=== PATIENT | female | born 1980 | race Caucasian/White ===

== ENCOUNTER → 2016-07-25 | Outpatient (REF) | payer OTHER | LOC: M SFHCWAGY 09:37 | PROVIDERS: ATTEND Family Medicine | DX: R87.619 Unspecified abnormal cytological findings in specimens from cervix uteri (principal) ==

== ENCOUNTER → 2016-09-16 | Outpatient (CLI) | payer OTHER ==
--- NOTE | 2016-09-16 09:28 | REP ---
Chest two views HISTORY: Post laminectomy syndrome Comparison: 05/02/2016 The lungs are clear. The heart is normal in size. The pulmonary vasculature is normal in appearance. The bony structure is intact. IMPRESSION: No acute disease. Signed by Sarbjit Cutler MD 09/16/2016 09:19 A
--- NOTE | 2016-09-16 09:28 | REP ---
LUMBAR SPINE, FIVE VIEWS: HISTORY: Post laminectomy syndrome. The patient is status post L5-S1 posterior spinal fusion and laminectomy. Metal rods and pedicle screws are present. There is no acute fracture. The L3-4 through L5-S1 intervertebral discs are decreased in height consistent with disc degeneration. Osteophytes are present on L3 through L5. There are 7 mm of grade 1 spondylolisthesis of L5 on S1. The facet joints are normal in appearance. IMPRESSION: 1. The patient is status post L5-S1 posterior spinal fusion and laminectomy. 2. Degenerative change as described above. Signed by Sarbjit Cutler MD 09/16/2016 09:37 A
== END ==
LOC: M RAD 08:40
PROVIDERS: ATTEND Nurse Practitioner Family
DX: M96.1 Postlaminectomy syndrome, not elsewhere classified (principal); R06.02 Shortness of breath; Z98.1 Arthrodesis status

== ENCOUNTER → 2016-10-01 | Outpatient (CLI) | payer OTHER ==
[~2016-10-01] MED LIST: DRIS50002 PO; FERR325T3 PO; NYQU1LIQ PO; VITA10002 PO; XANA1TAB2 PO
--- NOTE | 2016-10-01 16:23 | PFTRPT ---
PULMONARY FUNCTION REPORT ORDERING PROVIDER: MAGDALENE Mclean DATE OF SERVICE: 10/01/16 SPIROMETRY: Excellent technical quality. The forced vital capacity is normal. The FEV1 is in proportion. The obstructive index is, therefore, normal. FLOW VOLUME LOOP: The expiratory limb of the flow volume loop is normal. LUNG VOLUMES: The total lung capacity is normal. The residual volume is in proportion. DIFFUSION CAPACITY: The diffusion capacity is minimally reduced, but completely corrects for alveolar volume. HEMOGLOBIN: No hemoglobin is available for correction. AIRWAY MECHANICS: Airways resistance and conductance are normal. IMPRESSION: Minimal decline in the diffusion capacity. Please correlate clinically. MTDD
== END ==
LOC: M CARPUL 15:55
PROVIDERS: ATTEND Nurse Practitioner Family
DX: R06.02 Shortness of breath (principal); F17.290 Nicotine dependence, other tobacco product, uncomplicated

== ENCOUNTER 2016-10-02 08:31 | Emergency (ER) | payer OTHER ==
[~2016-10-02] VITALS: Ht 154.9 cm; Wt 64.9 kg
[2016-10-02] MEDS ORDERED: VITA10002 PO (08:46)
[2016-10-02] MEDS ORDERED: XANA1TAB2 PO (08:46)
[2016-10-02] MEDS ORDERED: DRIS50002 PO (08:46)
[2016-10-02] MEDS ORDERED: NYQU1LIQ PO (08:46)
[2016-10-02] MEDS ORDERED: FERR325T3 PO (08:46)
[2016-10-02] MEDS ORDERED: IBUPROFEN 600 MG TAB PO ONE (09:15)
--- NOTE | 2016-10-02 10:13 | REP ---
RIGHT ANKLE, FOUR VIEWS: HISTORY: Pain. There is no acute fracture or dislocation. The joint space is normal in appearance. IMPRESSION: There is no acute fracture or dislocation. Signed by Sarbjit Cutler MD 10/02/2016 10:25 A
[2016-10-02 10:31] VITALS: BP 106/65
--- NOTE | 2016-10-02 10:35 | REP ---
Right lower extremity deep vein duplex ultrasound: The deep veins demonstrate normal compression, normal Doppler color flow and normal Doppler waveforms with respiration augmentation at multiple levels from the popliteal vein to the common femoral vein. Impression: There is no evidence of deep vein thrombus. Signed by Harsh Murdock MD 10/02/2016 10:27 A
== END 2016-10-02 10:44 | disposition home or self-care (01) ==
LOC: M ED 09:34
DX: M76.61 Achilles tendinitis, right leg (principal); Z79.899 Other long term (current) drug therapy; Z88.5 Allergy status to narcotic agent; F17.210 Nicotine dependence, cigarettes, uncomplicated

== ENCOUNTER → 2016-10-10 | Outpatient (CLI) | payer OTHER ==
--- NOTE | 2016-10-10 09:59 | REP ---
MRI lumbar spine without and with IV contrast: History: Low back pain. The patient status post lumbar fusion. Comparison radiographs September 16, 2016. Comparison MRI study September 18, 2015. Technique: Sagittal and axial T1 and T2-weighted scans are acquired in the usual fashion with and without fat saturation. Sequences include spin echo, turbo spin-echo, and STIR imaging sequences. Post-gadolinium enhanced T1 fat sat axial and sagittal images are included. The gadolinium enhancement dose is 13 ml of intravenous ProHance. MRI findings: The patient is status post transpedicular screw emilee fixation across the L5-S1 level. The patient is status post L5 laminectomy. There is post laminectomy widening of the thecal sac bulging dorsally at L5-S1. There is a 7 mm L5-S1 spondylolisthesis noted. This was reported as 5 mm in September 2014. There is associated neural foraminal narrowing at L5-S1 bilaterally. This is essentially unchanged. At L4-5, there is no evidence of disc herniation. At L3-4, there is degenerative narrowing of the disc and mild diffuse disc bulging. No central canal stenosis or neural foraminal narrowing is seen. At L1-2, there is mild degenerative disc change. No disc protrusion is seen. No central canal stenosis is seen. Post gadolinium enhanced MR imaging shows no significant or abnormal gadolinium enhancement. Impression: Interval L5 laminectomy and bilateral L5-S1 transpedicular screw posterior element fusion for 7 mm L5-S1 spondylolisthesis associated with bilateral L5 spondylolysis. There is bilateral neural foraminal narrowing again noted at L5-S1. No other significant finding. Signed by Armando Felipe MD 10/10/2016 11:22 A
== END ==
LOC: M RAD 08:18
PROVIDERS: ATTEND Neurological Surgery
DX: M54.5 Low back pain (principal); Z98.1 Arthrodesis status
CPT/HCPCS: 72158; A9576

== ENCOUNTER → 2016-10-30 | Day surgery (SDC) | payer OTHER ==
[~2016-10-30] VITALS: Ht 154.9 cm; Wt 64.9 kg
[~2016-10-30] MED LIST changes: +ACETAMINOPH W/CODEINE #3 TAB UD PO PRN; +CITA40TA4 PO; +GLYCOPYRROLATE INJ 0.2 MG/ML 2 ML VIAL As Ordered ONE; +LIDOCAINE 2% INJ 100 MG/5 ML SDV (FOR ANES.) As Ordered ONE; +LR 1,000 ML IV ONE; +LR 1,000 ML IV SCH; +METOCLOPRAMIDE INJ 10MG/2ML VIAL (J2765) IV PRN; +MIDAZOLAM INJ 2 MG/2 ML VIAL (J2250) As Ordered ONE; +NEOSTIGMINE 1MG/ML 5 ML SYRINGE (J2710) As Ordered ONE; +OMEP40CA2 PO; +ONDANSETRON 4MG/2ML VIAL (J2405) As Ordered ONE; +ONDANSETRON 4MG/2ML VIAL (J2405) IV PRN; +PROPOFOL 200 MG/20 ML VIAL As Ordered ONE; +ROCURONIUM BROMIDE 50 MG/5 ML VIAL As Ordered ONE; +TRIAMCINOLONE ACETONIDE SUSP 40 MG/ML VIAL (J3301) As Ordered ONE; +dexameTHASONE 4 MG/ML 1ML VIAL (J1100) As Ordered ONE; +fentaNYL 100 MCG/2 ML INJECTION (J3010) As Ordered ONE
[2016-10-30] MEDS: PERCOCET 5MG/325MG TAB PO PRN ×2 (15:15→15:45)
[2016-10-30] MEDS: MEPERIDINE INJ 25 MG/ML VIAL (J2175) IV PRN ×2 (15:15→15:20)
[2016-10-30] MEDS: fentaNYL 100 MCG/2 ML INJECTION (J3010) IV PRN ×4 (15:45→16:00)
[2016-10-30 17:40] VITALS: BP 120/58
--- NOTE | 2016-10-30 22:05 | RO ---
DATE OF PROCEDURE: 10/30/2016 PREPROCEDURE DIAGNOSIS: Recurrent left submandibular sialadenitis. POSTPROCEDURE DIAGNOSIS: Recurrent left submandibular sialadenitis. PROCEDURE: Exploration of the left submandibular duct. SURGEON: Dr. Saad Davies CANE PILER: Librado Yoder ANESTHESIA: FINDINGS: The duct was sclerotic, and I could not enter it. DESCRIPTION OF PROCEDURE: Under general anesthesia with the patient intubated nasally, the patient was draped in the usual manner. I tried to probe the submandibular duct but could not find an opening. Because of that, I made an incision over the duct. I dissected down to it and around it and could not find an opening into the duct. After dissection into the floor of the mouth and following the duct, I decided to terminate the procedure. The patient will be brought back at a later date if she wishes for submandibular gland resection. Edited 10/30/2016 ina
== END | disposition home or self-care (01) ==
LOC: M SDC 11:06
PROVIDERS: ATTEND Otolaryngology
DX: K11.20 Sialoadenitis, unspecified (principal); K21.9 Gastro-esophageal reflux disease without esophagitis; D64.9 Anemia, unspecified; F41.8 Other specified anxiety disorders; Z79.899 Other long term (current) drug therapy; F17.210 Nicotine dependence, cigarettes, uncomplicated
CPT/HCPCS: 42320; J1100; J2175; J2250; J2405; J2710; J3010; J3301

== ENCOUNTER 2016-12-08 11:56 | Emergency (ER) | payer OTHER ==
[~2016-12-08] VITALS: Ht 154.9 cm; Wt 64.5 kg
[~2016-12-08 11:56] MED LIST changes: -ACETAMINOPH W/CODEINE #3 TAB UD PO PRN; -GLYCOPYRROLATE INJ 0.2 MG/ML 2 ML VIAL As Ordered ONE; -LIDOCAINE 2% INJ 100 MG/5 ML SDV (FOR ANES.) As Ordered ONE; -LR 1,000 ML IV ONE; -LR 1,000 ML IV SCH; -METOCLOPRAMIDE INJ 10MG/2ML VIAL (J2765) IV PRN; -MIDAZOLAM INJ 2 MG/2 ML VIAL (J2250) As Ordered ONE; -NEOSTIGMINE 1MG/ML 5 ML SYRINGE (J2710) As Ordered ONE; -ONDANSETRON 4MG/2ML VIAL (J2405) As Ordered ONE; -ONDANSETRON 4MG/2ML VIAL (J2405) IV PRN; -PROPOFOL 200 MG/20 ML VIAL As Ordered ONE; -ROCURONIUM BROMIDE 50 MG/5 ML VIAL As Ordered ONE; -TRIAMCINOLONE ACETONIDE SUSP 40 MG/ML VIAL (J3301) As Ordered ONE; -dexameTHASONE 4 MG/ML 1ML VIAL (J1100) As Ordered ONE; -fentaNYL 100 MCG/2 ML INJECTION (J3010) As Ordered ONE
[2016-12-08] MEDS ORDERED: PRED10TA (12:09)
[2016-12-08] MEDS ORDERED: ALBU17IN (12:09)
[2016-12-08] MEDS ORDERED: VITA100L PO (12:09)
[2016-12-08] MEDS ORDERED: VALI5TAB PO (13:41)
[2016-12-08] MEDS ORDERED: PRED20TA PO (13:41)
[2016-12-08 13:50] VITALS: BP 100/60
== END 2016-12-08 14:21 | disposition home or self-care (01) ==
LOC: M ED 13:03
DX: M54.41 Lumbago with sciatica, right side (principal); M54.42 Lumbago with sciatica, left side; F17.200 Nicotine dependence, unspecified, uncomplicated; Z98.1 Arthrodesis status; Z90.79 Acquired absence of other genital organ(s); Z88.5 Allergy status to narcotic agent; Z79.899 Other long term (current) drug therapy

== ENCOUNTER 2017-01-14 13:13 | Emergency (ER) | payer OTHER ==
[~2017-01-14] VITALS: Ht 154.9 cm; Wt 70.0 kg
[~2017-01-14 13:13] MED LIST changes: +ALBU17IN; +PRED10TA2; +PRED20TA PO; +VALI5TAB PO; +VITA100L PO
[2017-01-14] MEDS ORDERED: GABA-282 PO (13:26)
[2017-01-14] MEDS ORDERED: MONT10TA2 (13:26)
[2017-01-14 14:53] LABS: BASO # 0.1 K/mm3 (0.0-0.2); BASO % 0.5 % (0.0-1.0); EOS # 0.1 K/mm3 (0.0-0.50); EOS % 0.5 % (0.0-3.0); LARGE UNSTAINED CELL # 0.1 K/mm3 (0.0-0.4); LYMPH # 1.8 K/mm3 (1.5-4.5); LYMPH % 14.9 % (24.0-44.0); MEAN CORPUSCULAR HEMOGLOBIN 32.4 pg (27.0-33.0); MEAN CORPUSCULAR HGB CONC 34.4 g/dl (32.0-36.5); MEAN CORPUSCULAR VOLUME 94.1 fl (80.0-96.0); MONO # 0.4 K/mm3 (0.0-0.8); MONO % 2.9 % (0.0-5.0); NEUTROPHILS # 9.7 K/mm3 (1.8-7.7); NEUTROPHILS % 80.2 % (36.0-66.0); PLATELET COUNT, AUTOMATED 105 k/mm3 (150-450); RED CELL DISTRIBUTION WIDTH 12.5 % (11.5-14.5); WHITE BLOOD COUNT 12.1 K/mm3 (4.0-10.0)
[2017-01-14 14:58] LABS: ADD MORPHOLOGY? YES
[2017-01-14 15:02] LABS: ANION GAP 7 MEQ/L (8-16); BLOOD UREA NITROGEN 8 MG/DL (7-18); CALCIUM LEVEL 8.9 MG/DL (8.5-10.1); CARBON DIOXIDE LEVEL 25 MEQ/L (21-32); CHLORIDE LEVEL 108 MEQ/L (98-107); CREATININE FOR GFR 0.64 MG/DL (0.55-1.02); GLOMERULAR FILTRATION RATE > 60.0 (>60); GLUCOSE, FASTING 93 MG/DL (70-105); POTASSIUM SERUM 3.8 MEQ/L (3.5-5.1); SODIUM LEVEL 140 MEQ/L (136-145); VITAMIN B12 LEVEL 303 PG/ML (247-911)
[2017-01-14 15:24] LABS: GIANT PLATELETS 1+
[2017-01-14 16:20] VITALS: BP 129/68
--- NOTE | 2017-01-14 19:45 | ECGEPIP ---
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
[2017-02-09] MEDS ORDERED: FLON1SPR (08:53)
== END 2017-01-14 16:42 | disposition home or self-care (01) ==
LOC: M ED 13:13
DX: R20.0 Anesthesia of skin (principal); R53.83 Other fatigue; F41.9 Anxiety disorder, unspecified; F17.210 Nicotine dependence, cigarettes, uncomplicated; Z88.5 Allergy status to narcotic agent; Z79.899 Other long term (current) drug therapy

== ENCOUNTER → 2017-02-02 | Outpatient (CLI) | payer OTHER ==
[~2017-02-02] MED LIST changes: +FLON1SPR; +GABA-282 PO; +MONT10TA2
[2017-02-02 07:55] LABS: BASO # 0.1 K/mm3 (0.0-0.2); BASO % 0.8 % (0.0-1.0); EOS # 0.2 K/mm3 (0.0-0.50); LARGE UNSTAINED CELL # 0.1 K/mm3 (0.0-0.4); LARGE UNSTAINED CELL % 1.4 % (0.0-4.0); LYMPH # 2.2 K/mm3 (1.5-4.5); MEAN CORPUSCULAR HEMOGLOBIN 32.1 pg (27.0-33.0); MEAN CORPUSCULAR HGB CONC 34.4 g/dl (32.0-36.5); MEAN CORPUSCULAR VOLUME 93.3 fl (80.0-96.0); MONO # 0.4 K/mm3 (0.0-0.8); MONO % 3.9 % (0.0-5.0); NEUTROPHILS # 6.4 K/mm3 (1.8-7.7); NEUTROPHILS % 68.8 % (36.0-66.0); PLATELET COUNT, AUTOMATED 112 k/mm3 (150-450); RED CELL DISTRIBUTION WIDTH 12.7 % (11.5-14.5); WHITE BLOOD COUNT 9.3 K/mm3 (4.0-10.0)
[2017-02-02 10:13] LABS: ADD MORPHOLOGY? YES
[2017-02-02 10:14] LABS: ANISOCYTOSIS 1+
== END ==
LOC: M LAB 07:21
PROVIDERS: ATTEND Internal Medicine Gastroenterology
DX: R19.7 Diarrhea, unspecified (principal); D69.49 Other primary thrombocytopenia

== ENCOUNTER 2017-03-09 10:40 | Outpatient (CLI) | payer OTHER ==
[~2017-03-09] VITALS: Ht 154.9 cm; Wt 64.9 kg
[2017-03-09] MEDS ORDERED: NS 1,000 ML IV ONE (11:00)
[2017-03-09] MEDS ORDERED: LIDOCAINE 2% INJ 100 MG/5 ML SDV (FOR ANES.) As Ordered ONE (11:59)
[2017-03-09] MEDS ORDERED: PROPOFOL 200 MG/20 ML VIAL As Ordered ONE (11:59)
--- NOTE | 2017-03-09 12:11 | ROOR ---
Patient Name: Julia Campos Procedure Date: 03/09/2017 11:56 AM Date of : 1980 Age: 36 Room: [facility] Gender: Female Note Status: Finalized Procedure: Upper GI endoscopy + Small bowel bx. Indications: Heartburn, Diarrhea, Endoscopy to assess diarrhea in patient suspected of having celiac disease Providers: Jayy Mead MD Referring MD: Eula JACKSON NP Requesting Provider: Medicines: Monitored Anesthesia Care Complications: No immediate complications. Procedure: Pre-Anesthesia Assessment: - The heart rate, respiratory rate, oxygen saturations, blood pressure, adequacy of pulmonary ventilation, and response to care were monitored throughout the procedure. The Endoscope was introduced through the mouth, and advanced to the second part of duodenum. The upper GI endoscopy was accomplished without difficulty. The patient tolerated the procedure well. Findings: The Z-line was regular and was found 37 cm from the incisors. A small hiatal hernia was present. No other significant abnormalities were identified in a careful examination of the stomach. The exam of the duodenum was otherwise normal. Biopsies for histology were taken with a cold forceps in the first portion of the duodenum for evaluation of celiac disease. The exam was otherwise without abnormality. Impression: - Z-line regular, 37 cm from the incisors. - Small hiatal hernia. - The examination was otherwise normal. - Biopsies were taken with a cold forceps for evaluation of celiac disease. Recommendation: - Patient has a contact number available for emergencies. The signs and symptoms of potential delayed complications were discussed with the patient. Return to normal activities tomorrow. Written discharge instructions were provided to the patient. - Discharge patient to home. - Follow an antireflux regimen. - Continue present medications. - Await pathology results. - Telephone GI clinic for pathology results in 1 week. - Return to referring physician. - The findings and recommendations were discussed with the patient's family. Jayy Mead MD Jayy Mead MD 03/09/2017 12:11:44 PM This report has been signed electronically. Number of Addenda: 0 Note Initiated On: 03/09/2017 11:56 AM Estimated Blood Loss: Estimated blood loss: none.
--- NOTE | 2017-03-09 12:29 | ROOR ---
Patient Name: Julia Campos Procedure Date: 03/09/2017 11:57 AM Date of : 1980 Age: 36 Room: [facility] Gender: Female Note Status: Finalized Procedure: Total Colonoscopy to Cecum + Cold Snare Polypectomy + Hemoclips Indications: Clinically significant diarrhea of unexplained origin Providers: Jayy Mead MD Referring MD: Eula JACKSON NP Requesting Provider: Medicines: Monitored Anesthesia Care Complications: No immediate complications. Procedure: Pre-Anesthesia Assessment: - The heart rate, respiratory rate, oxygen saturations, blood pressure, adequacy of pulmonary ventilation, and response to care were monitored throughout the procedure. The Colonoscope was introduced through the anus and advanced to the cecum, identified by appendiceal orifice and ileocecal valve. The colonoscopy was performed without difficulty. The patient tolerated the procedure well. The quality of the bowel preparation was good. Findings: The perianal and digital rectal examinations were normal. Non-bleeding internal hemorrhoids were found during retroflexion. The hemorrhoids were small and Grade I (internal hemorrhoids that do not prolapse). A small polyp was found at 10 cm proximal to the anus. The polyp was sessile. The polyp was removed with a cold snare. Resection and retrieval were complete. To prevent bleeding after the polypectomy, one hemostatic clip was successfully placed (MR conditional). There was no bleeding at the end of the procedure. Scattered small-mouthed diverticula were found in the recto-sigmoid colon, sigmoid colon and descending colon. Biopsies for histology were taken with a cold forceps from the ascending colon, transverse colon and descending colon for evaluation of microscopic colitis. The exam was otherwise without abnormality on direct and retroflexion views. Impression: - Non-bleeding internal hemorrhoids. - One small polyp at 10 cm proximal to the anus, removed with a cold snare. Resected and retrieved. Clip (MR conditional) was placed. - Diverticulosis in the recto-sigmoid colon, in the sigmoid colon and in the descending colon. - The examination was otherwise normal on direct and retroflexion views. - Biopsies were taken with a cold forceps from the ascending colon, transverse colon and descending colon for evaluation of microscopic colitis. - The exam was otherwise normal to the cecum. Recommendation: - Patient has a contact number available for emergencies. The signs and symptoms of potential delayed complications were discussed with the patient. Return to normal activities tomorrow. Written discharge instructions were provided to the patient. - High fiber diet. - Discharge patient to home. - Continue present medications. - Await pathology results. - Telephone GI clinic for pathology results in 1 week. - Repeat colonoscopy at age 48 for surveillance based on pathology results. - Return to referring physician. - The findings and recommendations were discussed with the patient's family. Jayy Mead MD Jayy Mead MD 03/09/2017 12:29:16 PM This report has been signed electronically. Number of Addenda: 0 Note Initiated On: 03/09/2017 11:57 AM Estimated Blood Loss: Estimated blood loss: none.
[2017-03-09 12:55] VITALS: BP 115/77
== END 2017-03-09 13:15 | disposition home or self-care (01) ==
LOC: M OPP 10:40
PROVIDERS: ATTEND Internal Medicine Gastroenterology
DX: R19.7 Diarrhea, unspecified (principal); D12.8 Benign neoplasm of rectum; K64.0 First degree hemorrhoids; K57.30 Diverticulosis of large intestine without perforation or abscess without bleeding; R12 Heartburn; K44.9 Diaphragmatic hernia without obstruction or gangrene; R00.2 Palpitations; D64.9 Anemia, unspecified; D69.49 Other primary thrombocytopenia; M19.90 Unspecified osteoarthritis, unspecified site; F41.9 Anxiety disorder, unspecified; F32.9 Major depressive disorder, single episode, unspecified; G43.909 Migraine, unspecified, not intractable, without status migrainosus; J45.909 Unspecified asthma, uncomplicated; G47.8 Other sleep disorders; F40.240 Claustrophobia; Z98.1 Arthrodesis status; F17.210 Nicotine dependence, cigarettes, uncomplicated; Z88.8 Allergy status to other drugs, medicaments and biological substances; Z79.899 Other long term (current) drug therapy; Z80.3 Family history of malignant neoplasm of breast; Z80.41 Family history of malignant neoplasm of ovary; Z80.0 Family history of malignant neoplasm of digestive organs

== ENCOUNTER → 2017-04-09 | Outpatient (CLI) | payer OTHER ==
--- NOTE | 2017-04-09 14:56 | REP ---
LEFT HUMERUS, TWO VIEWS: HISTORY: Pain. There is no acute fracture or dislocation. The joint spaces are normal in appearance. IMPRESSION: There is no acute fracture or dislocation. Signed by Sarbjit Cutler MD 04/09/2017 02:57 P
--- NOTE | 2017-04-09 15:00 | REP ---
RIGHT HAND, FOUR VIEWS: HISTORY: Pain. There is no acute fracture or dislocation. The joint spaces are normal in appearance. IMPRESSION: There is no acute fracture or dislocation. Signed by Sarbjit Cutler MD 04/09/2017 03:04 P
== END ==
LOC: M WUC 12:21
PROVIDERS: ATTEND Physician Assistant
DX: M79.602 Pain in left arm (principal); M79.641 Pain in right hand

== ENCOUNTER → 2017-06-16 | Outpatient (REF) | payer OTHER ==
[~2017-06-16] MED LIST changes: +GABA600T; +GENT3OPD OU
== END ==
LOC: M SFHCLERA 18:59
PROVIDERS: ATTEND Nurse Practitioner Family
DX: R10.2 Pelvic and perineal pain (principal)

== ENCOUNTER 2017-06-23 12:00 | Emergency (ER) | payer OTHER | END 2017-06-23 14:32 | disposition home or self-care (01) | LOC: M ED 12:00 | DX: H10.9 Unspecified conjunctivitis (principal); H00.013 Hordeolum externum right eye, unspecified eyelid; H00.016 Hordeolum externum left eye, unspecified eyelid; K21.9 Gastro-esophageal reflux disease without esophagitis; G89.29 Other chronic pain; D69.3 Immune thrombocytopenic purpura; Z79.899 Other long term (current) drug therapy; Z88.5 Allergy status to narcotic agent; F17.210 Nicotine dependence, cigarettes, uncomplicated | CPT/HCPCS: 99283 ==

== ENCOUNTER → 2017-07-31 | Outpatient (REF) | payer OTHER | LOC: M SFHCLERA 12:06 | DX: M54.5 Low back pain (principal); J06.9 Acute upper respiratory infection, unspecified ==

== ENCOUNTER → 2017-08-24 | Outpatient (CLI) | payer OTHER | LOC: M RAD 10:33 | DX: M79.1 Myalgia (principal) | CPT/HCPCS: 76882 ==

== ENCOUNTER 2017-09-05 10:51 | Emergency (ER) | payer OTHER ==
[2017-09-05] MEDS: NORCO, ANEXSIA 5/325MG TABLET (HYDROcodone/ACETAMINOPHEN) PO (11:37)
[2017-09-05] MEDS: METHOCARBAMOL 500 MG TAB PO (11:37)
== END 2017-09-05 12:28 | disposition home or self-care (01) ==
LOC: M ED 10:51
DX: M54.12 Radiculopathy, cervical region (principal); J45.909 Unspecified asthma, uncomplicated; K21.9 Gastro-esophageal reflux disease without esophagitis; G43.909 Migraine, unspecified, not intractable, without status migrainosus; F41.9 Anxiety disorder, unspecified; D69.3 Immune thrombocytopenic purpura; F17.210 Nicotine dependence, cigarettes, uncomplicated; Z88.5 Allergy status to narcotic agent; Z79.899 Other long term (current) drug therapy
CPT/HCPCS: 72125

== ENCOUNTER → 2017-09-07 | Outpatient (CLI) | payer OTHER | LOC: M LRY 18:23 | DX: M79.675 Pain in left toe(s) (principal) | CPT/HCPCS: 73630 ==

== ENCOUNTER → 2017-09-18 | Outpatient (CLI) | payer OTHER | LOC: M LAB 18:32 | DX: Z01.818 Encounter for other preprocedural examination (principal) | CPT/HCPCS: 93005 ==

== ENCOUNTER 2017-09-24 10:54 | Emergency (ER) | payer OTHER ==
[2017-09-24 10:04] LABS: BASO % 0.2 % (0.0-1.0); EOS # 0.1 10^3/uL (0.0-0.50); EOS % 0.6 % (0.0-3.0); HEMATOCRIT 42.7 % (36.0-47.0); HEMOGLOBIN 14.6 g/dl (12.0-16.0); IMMATURE GRANULOCYTE % 0.3 % (0-3.0); LYMPH # 2.5 10^3/uL (1.5-4.5); LYMPH % 18.1 % (24.0-44.0); MEAN CORPUSCULAR HEMOGLOBIN 31.3 pg (27.0-33.0); MEAN CORPUSCULAR HGB CONC 34.2 g/dl (32.0-36.5); MEAN CORPUSCULAR VOLUME 91.6 fl (80.0-96.0); MONO # 0.7 10^3/uL (0.0-0.8); MONO % 5.5 % (0.0-5.0); NEUTROPHILS # 10.2 10^3/uL (1.8-7.7); NEUTROPHILS % 75.3 % (36.0-66.0); PLATELET COUNT, AUTOMATED 132 10^3/uL (150-450); RED BLOOD COUNT 4.66 10^6/uL (4.00-5.40); RED CELL DISTRIBUTION WIDTH 13.2 % (11.5-14.5); WHITE BLOOD COUNT 13.5 10^3/uL (4.0-10.0)
[2017-09-24 10:21] LABS: ANION GAP 4 MEQ/L (8-16); BLOOD UREA NITROGEN 11 MG/DL (7-18); CALCIUM LEVEL 8.6 MG/DL (8.5-10.1); CARBON DIOXIDE LEVEL 30 MEQ/L (21-32); CHLORIDE LEVEL 108 MEQ/L (98-107); CPK CREATINE PHOSPHOKINASE 47 U/L (26-192); CREATININE FOR GFR 0.68 MG/DL (0.55-1.30); GLOMERULAR FILTRATION RATE > 60.0 (>60); GLUCOSE, FASTING 107 MG/DL (70-100); POTASSIUM SERUM 3.1 MEQ/L (3.5-5.1); SODIUM LEVEL 142 MEQ/L (136-145); TROPONIN I < 0.02 NG/ML (< 0.10)
[2017-09-24 10:22] LABS: CK-MB VALUE MASS < 1.0 NG/ML (<3.6); MB/CK RELATIVE INDEX 2.12 (< OR =4)
[2017-09-24] MEDS: POTASSIUM CHLORIDE 10 MEQ SR TABLET PO (10:56)
== END 2017-09-24 11:13 | disposition home or self-care (01) ==
LOC: M ED 10:54
DX: M50.30 Other cervical disc degeneration, unspecified cervical region (principal); R94.31 Abnormal electrocardiogram [ECG] [EKG]; E87.6 Hypokalemia; D69.3 Immune thrombocytopenic purpura; K21.9 Gastro-esophageal reflux disease without esophagitis; F41.9 Anxiety disorder, unspecified; F17.200 Nicotine dependence, unspecified, uncomplicated; Z79.899 Other long term (current) drug therapy; Z88.5 Allergy status to narcotic agent; Z98.890 Other specified postprocedural states
CPT/HCPCS: 93005

== ENCOUNTER 2017-10-20 18:03 | Emergency (ER) | payer OTHER ==
[2017-10-20] MEDS: METHOCARBAMOL 750 MG TAB PO (21:53)
[2017-10-20] MEDS: NORCO 5/325MG TABLET (BULK FOR ED) PO (21:53)
== END 2017-10-20 21:59 | disposition home or self-care (01) ==
LOC: M ED 18:03
DX: M54.12 Radiculopathy, cervical region (principal); J45.909 Unspecified asthma, uncomplicated; K21.9 Gastro-esophageal reflux disease without esophagitis; F17.200 Nicotine dependence, unspecified, uncomplicated; Z86.69 Personal history of other diseases of the nervous system and sense organs; Z88.5 Allergy status to narcotic agent; Z79.51 Long term (current) use of inhaled steroids; Z79.899 Other long term (current) drug therapy
CPT/HCPCS: 99283

== ENCOUNTER → 2017-12-28 | Outpatient (CLI) | payer OTHER | LOC: M RAD 08:04 | DX: M47.812 Spondylosis without myelopathy or radiculopathy, cervical region (principal); Z98.890 Other specified postprocedural states | CPT/HCPCS: 72040 ==

== ENCOUNTER → 2018-02-19 | Outpatient (REF) | payer OTHER ==
[2018-02-24 14:18] LABS: HPV HYBRID CAPTURE II Negative (Negative)
== END ==
LOC: M SFHCWAGY 09:57
DX: Z12.4 Encounter for screening for malignant neoplasm of cervix (principal)

== ENCOUNTER 2018-03-16 07:39 | Emergency (ER) | payer OTHER ==
[2018-03-16] MEDS: NORCO, ANEXSIA 5/325MG TABLET (HYDROcodone/ACETAMINOPHEN) PO (08:53)
== END 2018-03-16 09:20 | disposition home or self-care (01) ==
LOC: M ED 07:39
DX: M65.812 Other synovitis and tenosynovitis, left shoulder (principal)
CPT/HCPCS: 73030

== ENCOUNTER → 2018-04-16 | Outpatient (CLI) | payer OTHER | LOC: M RAD 17:44 | DX: M47.812 Spondylosis without myelopathy or radiculopathy, cervical region (principal); G93.5 Compression of brain; Z98.1 Arthrodesis status | CPT/HCPCS: 72141 ==

== ENCOUNTER 2018-05-24 17:06 | Emergency (ER) | payer OTHER | END 2018-05-24 19:44 | disposition home or self-care (01) | LOC: M ED 17:06 | DX: S16.1XXA Strain of muscle, fascia and tendon at neck level, initial encounter (principal); S29.012A Strain of muscle and tendon of back wall of thorax, initial encounter; X58.XXXA Exposure to other specified factors, initial encounter; Y92.89 Other specified places as the place of occurrence of the external cause; Z79.899 Other long term (current) drug therapy; Z88.5 Allergy status to narcotic agent; F17.210 Nicotine dependence, cigarettes, uncomplicated | CPT/HCPCS: 99283 ==

== ENCOUNTER → 2018-06-15 | Outpatient (REF) | payer OTHER ==
[~2018-06-15] MED LIST changes: -DRIS50002 PO; +DRIS50003 PO; -GABA-282 PO; +GABA-843 PO; +K-TA1TAB PO; +MEDR4PAK PO; +MOBI4TAB PO; +NAPR-49 PO; +NORCOTAB PO; +OMEP40CA2; +PERC5TAB12 PO; +ROBA500T PO; +SOMA350T PO
[2018-06-15 17:58] LABS: AMORPHOUS SEDIMENT SMALL (NEGATIVE); APPEARANCE, URINE HAZY (CLEAR); BACTERIA, URINE AUTO NEGATIVE (NEGATIVE); BILIRUBIN, URINE AUTO NEGATIVE (NEGATIVE); BLOOD, URINE BLOOD NEGATIVE (NEGATIVE); COLOR, URINE YELLOW (YELLOW); GLUCOSE, URINE (UA) AUTO NEGATIVE (NEGATIVE); KETONE, URINE AUTO NEGATIVE (NEGATIVE); LEUKOCYTE ESTERASE, URINE AUTO NEGATIVE (NEGATIVE); MUCUS, URINE SMALL (NEGATIVE); NITRITE, URINE AUTO NEGATIVE (NEGATIVE); PROTEIN, URINE AUTO NEGATIVE (NEGATIVE); RBC, URINE AUTO 0 /HPF (0-3); SPECIFIC GRAVITY URINE AUTO 1.009 (1.002-1.035); SQUAMOUS EPITHELIAL CELL UR AU 4 /HPF (0-6); UROBILINOGEN, URINE AUTO 0.2 mg/dL (0.0-2.0); WBC, URINE AUTO 1 /HPF (0-3)
== END ==
LOC: M LAB REF 17:17
PROVIDERS: ATTEND Physician Assistant Medical
DX: N39.0 Urinary tract infection, site not specified (principal)

== ENCOUNTER → 2018-06-23 | Outpatient (CLI) | payer OTHER ==
[~2018-06-23] MED LIST changes: +AUGM875T28 PO; -GABA600T; +GABA600T4; -NAPR-49 PO; +NAPR-50 PO; +PRED10TA2 PO
--- NOTE | 2018-06-23 18:03 | REP ---
Clinical: Trauma. Technique: AP, lateral, bilateral oblique views right hand . Findings: The osseous structures and joint spaces are intact and normal. There is no evidence for acute fracture or dislocation. Surrounding soft tissues are unremarkable. No subcutaneous emphysema or radiodense foreign body. Impression: Normal right hand series . No acute fracture or dislocation. Electronically Signed by Solis Carmichael MD 06/23/2018 05:54 P
== END ==
LOC: M WUC 17:39
PROVIDERS: ATTEND Physician Assistant
DX: M79.641 Pain in right hand (principal)

== ENCOUNTER 2018-07-03 07:02 | Emergency (ER) | payer OTHER ==
[~2018-07-03] VITALS: Ht 154.9 cm; Wt 66.4 kg
[~2018-07-03 07:02] MED LIST changes: -AUGM875T28 PO; -PRED10TA2 PO
[2018-07-03 07:03] VITALS: BP 121/76
[2018-07-03] MEDS ORDERED: AUGM875T28 PO (08:01)
[2018-07-03] MEDS ORDERED: PRED10TA2 PO (08:01)
== END 2018-07-03 08:06 | disposition home or self-care (01) ==
LOC: M ED 07:02
DX: J32.9 Chronic sinusitis, unspecified (principal); G93.5 Compression of brain; J45.909 Unspecified asthma, uncomplicated; K21.9 Gastro-esophageal reflux disease without esophagitis; G43.909 Migraine, unspecified, not intractable, without status migrainosus; M54.9 Dorsalgia, unspecified; D69.3 Immune thrombocytopenic purpura; D64.9 Anemia, unspecified; K74.60 Unspecified cirrhosis of liver; F41.9 Anxiety disorder, unspecified; F32.9 Major depressive disorder, single episode, unspecified; F17.200 Nicotine dependence, unspecified, uncomplicated; Z87.442 Personal history of urinary calculi; Z88.5 Allergy status to narcotic agent; Z79.899 Other long term (current) drug therapy

== ENCOUNTER → 2018-07-14 | Outpatient (CLI) | payer OTHER ==
[~2018-07-14] MED LIST changes: +AUGM875T28 PO; +PRED10TA2 PO
--- NOTE | 2018-07-15 00:43 | REP ---
Clinical: Radiculopathy. Technique: AP and lateral views of the cervical spine. Findings: The patient is noted to be status post anterior fixation at C4-C7. Alignment and lordosis maintained. Hardware is in satisfactory position. Disc spaces are maintained. No significant spurring/osteophyte formation or obvious degenerative change noted. Prevertebral soft tissues are normal. Impression: Status post anterior fixation. Otherwise essentially normal two views of the cervical spine. Electronically Signed by Solis Carmichael MD 07/15/2018 12:35 A
== END ==
LOC: M RAD 15:59
PROVIDERS: ATTEND Neurological Surgery
DX: M47.812 Spondylosis without myelopathy or radiculopathy, cervical region (principal); Z98.1 Arthrodesis status

== ENCOUNTER → 2018-07-15 | Outpatient (CLI) | payer OTHER | LOC: M RAD 11:48 | PROVIDERS: ATTEND Neurological Surgery | DX: M47.22 Other spondylosis with radiculopathy, cervical region (principal) ==

== ENCOUNTER → 2018-09-02 | Outpatient (REF) | payer OTHER ==
[2018-09-02 18:52] LABS: APPEARANCE, URINE HAZY (CLEAR); BACTERIA, URINE AUTO NEGATIVE (NEGATIVE); BILIRUBIN, URINE AUTO NEGATIVE (NEGATIVE); BLOOD, URINE BLOOD NEGATIVE (NEGATIVE); COLOR, URINE YELLOW (YELLOW); GLUCOSE, URINE (UA) AUTO NEGATIVE (NEGATIVE); KETONE, URINE AUTO NEGATIVE (NEGATIVE); LEUKOCYTE ESTERASE, URINE AUTO NEGATIVE (NEGATIVE); NITRITE, URINE AUTO NEGATIVE (NEGATIVE); PROTEIN, URINE AUTO NEGATIVE (NEGATIVE); RBC, URINE AUTO 0 /HPF (0-3); SPECIFIC GRAVITY URINE AUTO 1.015 (1.002-1.035); SQUAMOUS EPITHELIAL CELL UR AU 3 /HPF (0-6); UROBILINOGEN, URINE AUTO 0.2 mg/dL (0.0-2.0); WBC, URINE AUTO 1 /HPF (0-3)
== END ==
LOC: M LAB REF 16:59
PROVIDERS: ATTEND Nurse Practitioner Adult Health
DX: Z01.818 Encounter for other preprocedural examination (principal)

== ENCOUNTER → 2018-09-02 | Outpatient (REF) | payer OTHER ==
[2018-09-02 17:34] LABS: BASO # 0.1 10^3/uL (0.0-0.2); BASO % 0.5 % (0.0-1.0); EOS # 0.2 10^3/uL (0.0-0.50); EOS % 1.6 % (0.0-3.0); HEMATOCRIT 43.2 % (36.0-47.0); HEMOGLOBIN 14.6 g/dl (12.0-15.5); LYMPH # 2.7 10^3/uL (1.5-4.5); LYMPH % 27.3 % (24.0-44.0); MEAN CORPUSCULAR HEMOGLOBIN 30.6 pg (27.0-33.0); MEAN CORPUSCULAR HGB CONC 33.8 g/dl (32.0-36.5); MEAN CORPUSCULAR VOLUME 90.6 fl (80.0-96.0); MONO # 0.6 10^3/uL (0.0-0.8); MONO % 6.3 % (0.0-5.0); NEUTROPHILS # 6.4 10^3/uL (1.8-7.7); PLATELET COUNT, AUTOMATED 126 10^3/uL (150-450); RED BLOOD COUNT 4.77 10^6/uL (4.00-5.40)
[2018-09-02 17:37] LABS: INR 0.99; PROTHROMBIN TIME 13.2 SECONDS (12.1-14.4)
[2018-09-02 17:38] LABS: PARTIAL THROMBOPLASTIN TIME 29.2 SECONDS (25.4-37.6)
[2018-09-02 17:42] LABS: ALBUMIN 3.7 GM/DL (3.2-5.2); ALT/SGPT 25 U/L (12-78); BILIRUBIN,TOTAL 0.5 MG/DL (0.2-1.0); BLOOD UREA NITROGEN 8 MG/DL (7-18); CALCIUM LEVEL 8.7 MG/DL (8.5-10.1); CARBON DIOXIDE LEVEL 27 MEQ/L (21-32); CHLORIDE LEVEL 107 MEQ/L (98-107); CREATININE FOR GFR 0.62 MG/DL (0.55-1.30); GLOMERULAR FILTRATION RATE > 60.0 (>58); GLUCOSE, FASTING 109 MG/DL (70-100); POTASSIUM SERUM 4.1 MEQ/L (3.5-5.1); SODIUM LEVEL 141 MEQ/L (136-145)
== END ==
LOC: M LAB REF 16:30
PROVIDERS: ATTEND Nurse Practitioner Adult Health
DX: Z01.818 Encounter for other preprocedural examination (principal)

== ENCOUNTER 2018-10-25 14:32 | Emergency (ER) | payer OTHER ==
[~2018-10-25] VITALS: Ht 154.9 cm; Wt 64.9 kg
[~2018-10-25 14:32] MED LIST changes: +GENT0.3S36 OU; -GENT3OPD OU; +HYDR-3715 PO; -NAPR-50 PO; +NAPR-837 PO; -NORCOTAB PO
[2018-10-25] MEDS ORDERED: ALBU8.5H (14:42)
[2018-10-25] MEDS ORDERED: KETOROLAC TROMETHAMINE 10 MG TAB PO ONE (17:15)
[2018-10-25] MEDS ORDERED: PRED20TA PO (18:06)
[2018-10-25] MEDS ORDERED: KETO10TAB PO (18:06)
[2018-10-25 18:25] VITALS: BP 114/67
--- NOTE | 2018-10-26 07:25 | REP ---
REASON: Mid back pain. COMPARISON: None. CT cannot rule out a disc extrusion. Thoracic vertebral body height and alignment is within normal limits. The disc spaces are symmetric and relatively well maintained throughout with a small Schmorl's node seen involving the inferior anterior endplate of T7. There is no bony cause of foraminal narrowing or central canal stenosis at any thoracic level. There has been previous anterior cervical discectomy. This is only partially imaged on this thoracic spine CT scan. Evaluation of the lung gill show them to be within normal limits, although seen in a limited on this thoracic spine CT. IMPRESSION: No significant abnormality with findings as described above. CT cannot rule out a disc extrusion. Electronically Signed by Chucho Sanford DO 10/26/2018 04:29 P
--- NOTE | 2018-10-26 07:27 | REP ---
REASON: Increasing back pain. COMPARISON: 07/05/2017 CT can not rule out a disc extrusion. Once again, transpedicular screws are seen bilaterally at L5 and S1 status quo. Once again, there is a grade 1/2 L5 upon S1 spondylolisthesis which is unchanged. There is disc space narrowing at L5-S1 with the remainder of the disc spaces being unchanged and showing only minimal disc space height loss posteriorly. Vertebral body height is unchanged and again seen to be within normal limits. Previous laminectomy again seen at L5 and S1 status quo. There is no bony cause of central canal stenosis or foraminal narrowing and there has been no significant change when compared to the prior CT, even with orthopedic metal reducing artifact there is significant spray artifact obscuring the soft tissues. IMPRESSION: No discernable change when compared to the prior exam with findings as described above. The exam is performed without the intravenous contrast which makes postoperative infection more difficult to diagnosis then if the exam was performed after the administration of intravenous contrast. There is no evidence of soft-tissue infection. There is no evidence of an acute bony change. Electronically Signed by Chucho Sanford DO 10/26/2018 04:30 P
== END 2018-10-25 18:27 | disposition home or self-care (01) ==
LOC: M ED 14:32
DX: M54.5 Low back pain (principal); J45.909 Unspecified asthma, uncomplicated; D69.3 Immune thrombocytopenic purpura; K21.9 Gastro-esophageal reflux disease without esophagitis; F33.9 Major depressive disorder, recurrent, unspecified; F41.9 Anxiety disorder, unspecified; F17.210 Nicotine dependence, cigarettes, uncomplicated; Q07.00 Arnold-Chiari syndrome without spina bifida or hydrocephalus; Z90.49 Acquired absence of other specified parts of digestive tract; Z79.899 Other long term (current) drug therapy; Z79.51 Long term (current) use of inhaled steroids

== ENCOUNTER 2018-11-18 08:28 | Emergency (ER) | payer OTHER ==
[~2018-11-18] VITALS: Ht 154.9 cm; Wt 69.7 kg
[~2018-11-18 08:28] MED LIST changes: +ALBU8.5H; +KETO10TAB PO
[2018-11-18 09:45] LABS: VENOUS BASE EXCESS -0.1 (-2.0-2.0); VENOUS HCO3 25.4 MEQ/L (23.0-27.0); VENOUS O2 SATURATION 68.8 % (60.0-80.0); VENOUS PARTIAL PRESSURE CO2 44.6 mmHg (38.0-50.0); VENOUS PARTIAL PRESSURE O2 33.1 mmHg (30.0-50.0); VENOUS PH 7.374 UNITS (7.330-7.430); VENOUS STANDARD HCO3 23.6 MEQ/L; VENOUS TOTAL CO2 26.8 MEQ/L (24.0-28.0)
[2018-11-18 09:53] LABS: BASO # 0.1 10^3/uL (0.0-0.2); BASO % 0.3 % (0.0-1.0); EOS # 0.1 10^3/uL (0.0-0.50); EOS % 0.6 % (0.0-3.0); HEMATOCRIT 46.3 % (36.0-47.0); HEMOGLOBIN 15.7 g/dl (12.0-15.5); LYMPH # 2.6 10^3/uL (1.5-4.5); LYMPH % 16.5 % (24.0-44.0); MEAN CORPUSCULAR HEMOGLOBIN 31.3 pg (27.0-33.0); MEAN CORPUSCULAR HGB CONC 33.9 g/dl (32.0-36.5); MEAN CORPUSCULAR VOLUME 92.4 fl (80.0-96.0); MONO % 6.3 % (0.0-5.0); NEUTROPHILS # 11.9 10^3/uL (1.8-7.7); NEUTROPHILS % 75.9 % (36.0-66.0); PLATELET COUNT, AUTOMATED 143 10^3/uL (150-450); RED BLOOD COUNT 5.01 10^6/uL (4.00-5.40); WHITE BLOOD COUNT 15.7 10^3/uL (4.0-10.0)
--- NOTE | 2018-11-18 09:59 | REP ---
Clinical: Shortness of breath . Comparison: 10/01/2017 . Technique: PA and lateral. Findings: The mediastinum and cardiac silhouette are normal. The lung gill are clear and without acute consolidation, effusion, or pneumothorax. The skeletal structures are intact and normal. Impression: 1. No acute cardiopulmonary process. Electronically Signed by Solis Carmichael MD 11/18/2018 09:51 A
[2018-11-18 10:32] LABS: ALBUMIN 3.6 GM/DL (3.2-5.2); ALT/SGPT 25 U/L (12-78); BILIRUBIN,DIRECT 0.1 MG/DL (0.0-0.2); BILIRUBIN,TOTAL 0.7 MG/DL (0.2-1.0); BLOOD UREA NITROGEN 10 MG/DL (7-18); CALCIUM LEVEL 8.8 MG/DL (8.5-10.1); CARBON DIOXIDE LEVEL 25 MEQ/L (21-32); CHLORIDE LEVEL 108 MEQ/L (98-107); CK-MB VALUE MASS < 1.0 NG/ML (<3.6); CPK CREATINE PHOSPHOKINASE 50 U/L (26-192); CREATININE FOR GFR 0.71 MG/DL (0.55-1.30); GLOMERULAR FILTRATION RATE > 60.0 (>58); GLUCOSE, FASTING 93 MG/DL (70-100); POTASSIUM SERUM 3.8 MEQ/L (3.5-5.1); SODIUM LEVEL 139 MEQ/L (136-145); TOTAL PROTEIN 7.3 GM/DL (6.4-8.2); TROPONIN I < 0.02 NG/ML (< 0.10)
[2018-11-18] MEDS ORDERED: NS 1,000 ML IV ONE (10:45)
[2018-11-18] MEDS ORDERED: cefTRIAXone SOD 1 GM in D5W MINI-BAG PLUS 50 ML IV ONE (10:45)
[2018-11-18] MEDS: AZITHROMYCIN INJ 500 MG, VIAL MATE ADAPTER 1 EACH in D5W 250 ML IV ONE ×2 (11:54→12:20)
[2018-11-18] MEDS ORDERED: KETOROLAC 30 MG/ML VIAL (J1885) IV ONE (13:45)
[2018-11-18] MEDS ORDERED: ZITHTAB PO (14:25)
[2018-11-18 14:43] VITALS: BP 95/53
--- NOTE | 2018-11-18 20:46 | ECGEPIP ---
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
== END 2018-11-18 14:50 | disposition home or self-care (01) ==
LOC: M ED 08:28
DX: J18.9 Pneumonia, unspecified organism (principal); K74.60 Unspecified cirrhosis of liver; G93.5 Compression of brain; D64.9 Anemia, unspecified; D69.3 Immune thrombocytopenic purpura; F17.200 Nicotine dependence, unspecified, uncomplicated
CPT/HCPCS: 71046; 80048; 80076; 81001; 82550; 82553; 82803; 83605; 85025; 85379; 93005; 96365; 96375; 99284; J0456; J0696; J1885

== ENCOUNTER 2018-11-23 11:18 | Emergency (ER) | payer OTHER ==
[~2018-11-23] VITALS: Ht 154.9 cm; Wt 69.5 kg
[~2018-11-23 11:18] MED LIST changes: +ZITHTAB PO
[2018-11-23] MEDS ORDERED: KETOROLAC 30 MG/ML VIAL (J1885) IV ONE (13:00)
[2018-11-23] MEDS ORDERED: ONDANSETRON 4MG/2ML VIAL (J2405) IV ONE (13:00)
[2018-11-23] MEDS ORDERED: NS 1,000 ML IV SCH (13:00)
[2018-11-23 13:34] LABS: BASO % 0.4 % (0.0-1.0); EOS # 0.1 10^3/uL (0.0-0.50); EOS % 0.9 % (0.0-3.0); HEMATOCRIT 41.8 % (36.0-47.0); HEMOGLOBIN 14.2 g/dl (12.0-15.5); LYMPH # 2.2 10^3/uL (1.5-4.5); LYMPH % 25.4 % (24.0-44.0); MEAN CORPUSCULAR HEMOGLOBIN 31.4 pg (27.0-33.0); MEAN CORPUSCULAR VOLUME 92.5 fl (80.0-96.0); MONO # 0.6 10^3/uL (0.0-0.8); MONO % 7.1 % (0.0-5.0); NEUTROPHILS # 5.6 10^3/uL (1.8-7.7); PLATELET COUNT, AUTOMATED 124 10^3/uL (150-450); RED BLOOD COUNT 4.52 10^6/uL (4.00-5.40); WHITE BLOOD COUNT 8.5 10^3/uL (4.0-10.0)
[2018-11-23 13:41] LABS: INR 0.97; PROTHROMBIN TIME 12.9 SECONDS (12.1-14.4)
[2018-11-23 14:12] LABS: ALBUMIN 3.4 GM/DL (3.2-5.2); ALT/SGPT 21 U/L (12-78); BILIRUBIN,DIRECT 0.1 MG/DL (0.0-0.2); BILIRUBIN,TOTAL 0.6 MG/DL (0.2-1.0); BLOOD UREA NITROGEN 8 MG/DL (7-18); CALCIUM LEVEL 8.4 MG/DL (8.5-10.1); CARBON DIOXIDE LEVEL 28 MEQ/L (21-32); CHLORIDE LEVEL 108 MEQ/L (98-107); CREATININE FOR GFR 0.64 MG/DL (0.55-1.30); GLOMERULAR FILTRATION RATE > 60.0 (>58); GLUCOSE, FASTING 91 MG/DL (70-100); LIPASE 133 U/L (73-393); POTASSIUM SERUM 4.4 MEQ/L (3.5-5.1); SODIUM LEVEL 143 MEQ/L (136-145); TOTAL PROTEIN 6.9 GM/DL (6.4-8.2)
[2018-11-23] MEDS ORDERED: ISOVUE-370 76% 100ML VIAL (Q9967) As Ordered ONE (14:35)
--- NOTE | 2018-11-23 15:10 | REP ---
Clinical: Right upper quadrant pain. Technique: Axial contrast enhanced images from the lung bases to the pubic symphysis using 100 ml Isovue 370 intravenous contrast material with coronal and sagittal. Comparison: 07/13/2014 Findings: Lung bases are clear. Visualized heart and pericardium normal. 1 cm low density lesion in the lateral segment left lobe of the liver likely represents small cyst but cannot definitively be characterized. No further hepatic lesions are identified. Spleen, pancreas, bilateral adrenal glands and kidneys are normal. Evidence for prior cholecystectomy noted. The enteric system is without obstruction or acute inflammatory process. Normal terminal ileum and appendix are identified in the right lower quadrant. Pelvis demonstrates normal bladder and age-appropriate uterus/adnexa. No pelvic fluid or ascites. No free air. No adenopathy. Abdominal aorta without aneurysm or dissection. Musculoskeletal structures demonstrate prior L5-S1 fixation and laminectomy. Impression: 1. No acute abdominopelvic pathology appreciated. 2. 1 cm low density lesion in the left lobe of the liver cannot be further characterized but likely represent small cyst. Electronically Signed by Solis Carmichael MD 11/23/2018 03:01 P
[2018-11-23 16:00] VITALS: BP 104/68
--- NOTE | 2018-11-24 18:23 | ED PDOC ---
Post-Departure Follow-Up dr kelley faxed formal report of ct abd/p for fu Zac Fitzpatrick MD November 24, 2018 18:22
== END 2018-11-23 15:59 | disposition home or self-care (01) ==
LOC: M ED 11:18
DX: R10.9 Unspecified abdominal pain (principal); J45.909 Unspecified asthma, uncomplicated; D69.3 Immune thrombocytopenic purpura; Z79.899 Other long term (current) drug therapy; Z87.891 Personal history of nicotine dependence
CPT/HCPCS: 74177; 80048; 80076; 81001; 83690; 85025; 85610; 96361; 96374; 96375; 99284; J1885; J2405; Q9967

== ENCOUNTER → 2019-02-10 | Outpatient (REF) | payer OTHER ==
[~2019-02-10] MED LIST changes: +CYAN100049 PO; -OMEP40CA2; -OMEP40CA2 PO; +OMEP40CA97; +OMEP40CA97 PO; -VITA10002 PO
[2019-02-10 13:36] LABS: FREE T4 1.07 NG/DL (0.76-1.46); THYROID STIMULATING HORMONE 2.02 uIU/ML (0.358-3.740)
== END ==
LOC: M LAB REF 12:26
PROVIDERS: ATTEND Nurse Practitioner Family
DX: Z00.00 Encounter for general adult medical examination without abnormal findings (principal)

== ENCOUNTER → 2019-02-17 | Outpatient (REF) | payer OTHER ==
[2019-02-17 13:26] LABS: BASO # 0.1 10^3/uL (0.0-0.2); BASO % 0.4 % (0.0-1.0); EOS # 0.2 10^3/uL (0.0-0.50); EOS % 1.3 % (0.0-3.0); HEMATOCRIT 43.5 % (36.0-47.0); HEMOGLOBIN 14.6 g/dl (12.0-15.5); LYMPH # 2.3 10^3/uL (1.5-4.5); LYMPH % 19.9 % (24.0-44.0); MEAN CORPUSCULAR HEMOGLOBIN 31.1 pg (27.0-33.0); MEAN CORPUSCULAR HGB CONC 33.6 g/dl (32.0-36.5); MEAN CORPUSCULAR VOLUME 92.6 fl (80.0-96.0); MONO # 0.7 10^3/uL (0.0-0.8); MONO % 5.9 % (0.0-5.0); NEUTROPHILS # 8.3 10^3/uL (1.8-7.7); NEUTROPHILS % 72.2 % (36.0-66.0); PLATELET COUNT, AUTOMATED 133 10^3/uL (150-450); WHITE BLOOD COUNT 11.5 10^3/uL (4.0-10.0)
== END ==
LOC: M LAB REF 12:40
PROVIDERS: ATTEND Nurse Practitioner Family
DX: R59.9 Enlarged lymph nodes, unspecified (principal)

== ENCOUNTER → 2019-02-21 | Outpatient (REF) | payer OTHER ==
[~2019-02-21] MED LIST changes: +OMEP40CA2; +OMEP40CA2 PO; -OMEP40CA97; -OMEP40CA97 PO
== END ==
LOC: M SFHCWAGY 10:16
PROVIDERS: ATTEND Nurse Practitioner Family
DX: Z12.4 Encounter for screening for malignant neoplasm of cervix (principal)

== ENCOUNTER → 2019-02-21 | Outpatient (CLI) | payer OTHER ==
--- NOTE | 2019-02-21 12:00 | REPMRS ---
Patient History The patient states she had a clinical breast exam in 01/2019. Family history of breast cancer at age 50 or over in maternal grandmother. No Hormone Replacement Therapy 3D TOMOSYNTHESIS WAS PERFORMED. The [facility] lifetime risk for breast cancer is 12,4%. Digital Woman Screen Mammo: February 21, 2019 - Exam #: [id number] Bilateral CC and MLO view(s) were taken. Technologist: Nahomi Guy, Technologist FINDINGS: There are scattered fibroglandular densities. There is no evidence of cancer on this mammogram. Assessment: BI-RADS/ACR category 2 mammogram. Benign Findings. Recommendation Routine screening mammogram of both breasts in 1 year (for women over age 40). This mammogram was interpreted with the aid of an FDA-approved computer-aided dectection system. Electronically Signed By: Harsh Krueger MD 02/21/19 1200
== END ==
LOC: M WHC 09:24
PROVIDERS: ATTEND Nurse Practitioner Family
DX: Z12.31 Encounter for screening mammogram for malignant neoplasm of breast (principal)

== ENCOUNTER → 2019-03-21 | Outpatient (REF) | payer OTHER | LOC: M LAB REF 18:33 | PROVIDERS: ATTEND Obstetrics & Gynecology | DX: A63.0 Anogenital (venereal) warts (principal) ==

== ENCOUNTER → 2020-01-19 | Outpatient (CLI) | payer OTHER ==
[~2020-01-19] MED LIST changes: -MONT10TA2; +MONT10TA4; -OMEP40CA2; -OMEP40CA2 PO; +OMEP40CA97; +OMEP40CA97 PO
[2020-01-19 07:40] LABS: BASO # 0.1 10^3/uL (0.0-0.2); BASO % 0.5 % (0.0-1.0); EOS # 0.2 10^3/uL (0.0-0.5); EOS % 1.5 % (0.0-3.0); HEMATOCRIT 41.9 % (36.0-47.0); LYMPH # 2.1 10^3/uL (1.5-5.0); LYMPH % 21.1 % (24.0-44.0); MEAN CORPUSCULAR HEMOGLOBIN 31.1 pg (27.0-33.0); MEAN CORPUSCULAR HGB CONC 33.4 g/dl (32.0-36.5); MEAN CORPUSCULAR VOLUME 93.1 fl (80.0-96.0); MONO # 0.7 10^3/uL (0.0-0.8); MONO % 6.8 % (0.0-5.0); NEUTROPHILS % 69.6 % (36.0-66.0); PLATELET COUNT, AUTOMATED 127 10^3/uL (150-450)
[2020-01-19 08:09] LABS: ALBUMIN 3.1 GM/DL (3.2-5.2); ALT/SGPT 16 U/L (12-78); BILIRUBIN,TOTAL 0.7 MG/DL (0.2-1.0); BLOOD UREA NITROGEN 10 MG/DL (7-18); CALCIUM LEVEL 8.4 MG/DL (8.5-10.1); CARBON DIOXIDE LEVEL 28 MEQ/L (21-32); CHLORIDE LEVEL 109 MEQ/L (98-107); CREATININE FOR GFR 0.69 MG/DL (0.55-1.30); FREE T4 1.12 NG/DL (0.76-1.46); GLOMERULAR FILTRATION RATE > 60.0 (>58); GLUCOSE, FASTING 87 MG/DL (70-100); POTASSIUM SERUM 3.8 MEQ/L (3.5-5.1); SODIUM LEVEL 142 MEQ/L (136-145); TOTAL PROTEIN 6.4 GM/DL (6.4-8.2)
[2020-02-13 14:42] LABS: DOPAMINE PLASMA <30 pg/mL (0-48); EPINEPHRINE PLASMA 16 pg/mL (0-62); METANEPHRINE PLASMA 28.8 pg/mL (0.0-88.0); NOREPINEPHRINE PLASMA 207 pg/mL (0-874)
== END ==
LOC: M LAB 06:28
PROVIDERS: ATTEND Nurse Practitioner Family
DX: G44.89 Other headache syndrome (principal)

== ENCOUNTER → 2022-03-07 | Outpatient (REF) | payer OTHER ==
[~2022-03-07] MED LIST changes: -CITA40TA4 PO; +CITA40TA7 PO; +GABA-282 PO; -GABA-843 PO; -MONT10TA4; +MONT10TA97; +OMEP40CA4; +OMEP40CA4 PO; -OMEP40CA97; -OMEP40CA97 PO
== END ==
LOC: M PLALAB 08:41
PROVIDERS: ATTEND Nurse Practitioner Family
DX: Z12.4 Encounter for screening for malignant neoplasm of cervix (principal); R87.610 Atypical squamous cells of undetermined significance on cytologic smear of cervix (ASC-US)

== ENCOUNTER → 2022-04-03 | Outpatient (CLI) | payer OTHER | LOC: M WHC 13:17 | PROVIDERS: ATTEND Nurse Practitioner Family | DX: Z12.31 Encounter for screening mammogram for malignant neoplasm of breast (principal) ==

== ENCOUNTER → 2022-07-26 | Outpatient (CLI) | payer OTHER ==
[2022-07-26 09:55] LABS: BASO # 0.1 10^3/uL (0.0-0.2); BASO % 0.4 % (0.0-1.0); EOS # 0.1 10^3/uL (0.0-0.5); HEMATOCRIT 41.1 % (36.0-47.0); HEMOGLOBIN 13.7 g/dl (12.0-15.5); LYMPH % 17.2 % (24.0-44.0); MEAN CORPUSCULAR HEMOGLOBIN 30.1 pg (27.0-33.0); MEAN CORPUSCULAR HGB CONC 33.3 g/dl (32.0-36.5); MEAN CORPUSCULAR VOLUME 90.3 fl (80.0-96.0); MONO # 0.6 10^3/uL (0.0-0.8); MONO % 5.2 % (2.0-8.0); NEUTROPHILS % 75.9 % (36.0-66.0); PLATELET COUNT, AUTOMATED 147 10^3/uL (150-450); RED BLOOD COUNT 4.55 10^6/uL (4.00-5.40); WHITE BLOOD COUNT 11.8 10^3/uL (4.0-10.0)
[2022-07-26 10:16] LABS: LDH LACTATE DEHYDROGENASE 529 U/L (120-246)
[2022-07-26 10:28] LABS: ALBUMIN 3.3 G/DL (3.2-5.2); ALKALINE PHOSPHATASE 98 U/L (46-116); ALT/SGPT 21 U/L (7.0-40); AST/SGOT 49 U/L (<34); BLOOD UREA NITROGEN 11 MG/DL (9-23); CALCIUM LEVEL 8.4 MG/DL (8.5-10.1); CARBON DIOXIDE LEVEL 24 MMOL/L (20-31); CHLORIDE LEVEL 110 MMOL/L (98-107); CREATININE FOR GFR 0.75 MG/DL (0.55-1.30); FERRITIN 8.5 NG/ML (7.3-270.7); GLOMERULAR FILTRATION RATE > 60.0 (>58); GLUCOSE, FASTING 102 MG/DL (60-100); POTASSIUM SERUM 5.3 MMOL/L (3.5-5.1); SODIUM LEVEL 139 MMOL/L (136-145); TOTAL PROTEIN 6.7 G/DL (5.7-8.2); VITAMIN B12 LEVEL 282 PG/ML (211-911)
== END ==
LOC: M LAB 09:20
PROVIDERS: ATTEND Internal Medicine Hematology
DX: D69.3 Immune thrombocytopenic purpura (principal)

== ENCOUNTER → 2022-08-11 | Outpatient (REF) | payer OTHER ==
[2022-08-11 18:22] LABS: ALBUMIN 3.4 G/DL (3.2-5.2); ALKALINE PHOSPHATASE 108 U/L (46-116); ALT/SGPT 28 U/L (7.0-40); AST/SGOT 21 U/L (<34); BILIRUBIN,TOTAL 0.5 MG/DL (0.3-1.2); BLOOD UREA NITROGEN 10 MG/DL (9-23); CALCIUM LEVEL 8.6 MG/DL (8.5-10.1); CARBON DIOXIDE LEVEL 24 MMOL/L (20-31); CHLORIDE LEVEL 106 MMOL/L (98-107); CHOLESTEROL LEVEL 171 MG/DL (<200); GLOMERULAR FILTRATION RATE > 60.0 (>58); GLUCOSE, FASTING 90 MG/DL (60-100); LDL CHOLESTEROL 87.8 MG/DL (<100); NON-HDL-C 133 MG/DL; POTASSIUM SERUM 4.3 MMOL/L (3.5-5.1); SODIUM LEVEL 138 MMOL/L (136-145); THYROID STIMULATING HORMONE 1.777 uIU/ML (0.55-4.78); TOTAL 25(OH) VITAMIN D 14.4 NG/ML (20.0-100.0); TOTAL PROTEIN 6.5 G/DL (5.7-8.2); TRIGLYCERIDES LEVEL 226 MG/DL (<150); VITAMIN B12 LEVEL 293 PG/ML (211-911)
[2022-08-11 18:50] LABS: HIV 1&2 SCREEN CENTAUR NEGATIVE (NEGATIVE)
== END ==
LOC: M LAB REF 16:36
PROVIDERS: ATTEND Family Medicine Addiction Medicine
DX: E66.3 Overweight (principal)

== ENCOUNTER → 2022-10-31 | Outpatient (CLI) | payer OTHER | LOC: M RAD 06:53 | PROVIDERS: ATTEND Family Medicine Addiction Medicine | DX: M54.50 Low back pain, unspecified (principal); M51.36 Other intervertebral disc degeneration, lumbar region ==

== ENCOUNTER → 2023-04-01 | Outpatient (CLI) | payer OTHER ==
[2023-04-01 10:14] LABS: BASO % 0.4 % (0.0-1.0); EOS # 0.1 10^3/uL (0.0-0.5); EOS % 0.9 % (0.0-3.0); HEMATOCRIT 46.9 % (36.0-47.0); HEMOGLOBIN 16.1 g/dl (12.0-15.5); LYMPH # 2.3 10^3/uL (1.5-5.0); LYMPH % 21.2 % (24.0-44.0); MEAN CORPUSCULAR HEMOGLOBIN 32.1 pg (27.0-33.0); MEAN CORPUSCULAR HGB CONC 34.3 g/dl (32.0-36.5); MEAN CORPUSCULAR VOLUME 93.4 fl (80.0-96.0); MONO # 0.7 10^3/uL (0.0-0.8); MONO % 6.5 % (2.0-8.0); NEUTROPHILS # 7.7 10^3/uL (1.5-8.5); NEUTROPHILS % 70.6 % (36.0-66.0); PLATELET COUNT, AUTOMATED 127 10^3/uL (150-450); RED BLOOD COUNT 5.02 10^6/uL (4.00-5.40); WHITE BLOOD COUNT 10.9 10^3/uL (4.0-10.0)
[2023-04-01 10:48] LABS: ALBUMIN 3.5 G/DL (3.2-5.2); ALKALINE PHOSPHATASE 91 U/L (46-116); ALT/SGPT 24 U/L (7.0-40); AST/SGOT 13 U/L (<34); BILIRUBIN,TOTAL 0.8 MG/DL (0.3-1.2); BLOOD UREA NITROGEN 10 MG/DL (9-23); CALCIUM LEVEL 8.9 MG/DL (8.5-10.1); CARBON DIOXIDE LEVEL 28 MMOL/L (20-31); CHLORIDE LEVEL 109 MMOL/L (98-107); CREATININE FOR GFR 0.73 MG/DL (0.55-1.30); GLOMERULAR FILTRATION RATE > 60.0 (>58); GLUCOSE, FASTING 90 MG/DL (60-100); IRON (FE) 87 UG/DL (50-170); PERCENT SATURATION 28.2 % (13.2-45.0); POTASSIUM SERUM 4.1 MMOL/L (3.5-5.1); SODIUM LEVEL 140 MMOL/L (136-145); TOTAL IRON BINDING CAPACITY 308 UG/DL (250-425); TOTAL PROTEIN 6.6 G/DL (5.7-8.2)
[2023-04-01 10:49] LABS: FERRITIN 85.1 NG/ML (7.3-270.7); VITAMIN B12 LEVEL 441 PG/ML (211-911)
== END ==
LOC: M LAB 09:27
PROVIDERS: ATTEND Internal Medicine Hematology
DX: D50.0 Iron deficiency anemia secondary to blood loss (chronic) (principal)

== ENCOUNTER → 2023-04-29 | Outpatient (CLI) | payer OTHER | LOC: M WHC 13:05 | DX: D44.7 Neoplasm of uncertain behavior of aortic body and other paraganglia (principal) ==

== ENCOUNTER → 2023-09-24 | Outpatient (CLI) | payer OTHER | LOC: M WHC 13:57 | PROVIDERS: ATTEND Nurse Practitioner Family | DX: Z12.31 Encounter for screening mammogram for malignant neoplasm of breast (principal); R92.323 Mammographic fibroglandular density, bilateral breasts ==

== ENCOUNTER → 2023-09-24 | Outpatient (REF) | payer OTHER | LOC: M SFHCWAGY 17:16 | PROVIDERS: ATTEND Nurse Practitioner Family | DX: Z12.4 Encounter for screening for malignant neoplasm of cervix (principal) ==

== ENCOUNTER → 2023-10-13 | Outpatient (CLI) | payer OTHER ==
[2023-10-13 08:52] LABS: BASO # 0.1 10^3/uL (0.0-0.2); BASO % 0.5 % (0.0-1.0); EOS # 0.2 10^3/uL (0.0-0.5); EOS % 1.4 % (0.0-3.0); HEMATOCRIT 45.1 % (36.0-47.0); HEMOGLOBIN 15.4 g/dl (12.0-15.5); LYMPH # 2.6 10^3/uL (1.5-5.0); LYMPH % 21.1 % (24.0-44.0); MEAN CORPUSCULAR HEMOGLOBIN 32.1 pg (27.0-33.0); MEAN CORPUSCULAR HGB CONC 34.1 g/dl (32.0-36.5); MONO # 0.7 10^3/uL (0.0-0.8); MONO % 5.5 % (2.0-8.0); NEUTROPHILS # 8.8 10^3/uL (1.5-8.5); NEUTROPHILS % 71.1 % (36.0-66.0); PLATELET COUNT, AUTOMATED 125 10^3/uL (150-450); WHITE BLOOD COUNT 12.4 10^3/uL (4.0-10.0)
[2023-10-13 09:15] LABS: ALBUMIN 3.1 G/DL (3.2-5.2); ALKALINE PHOSPHATASE 86 U/L (46-116); ALT/SGPT 21 U/L (7.0-40); AST/SGOT 11 U/L (<34); BILIRUBIN,TOTAL 0.6 MG/DL (0.3-1.2); BLOOD UREA NITROGEN 12 MG/DL (9-23); CALCIUM LEVEL 8.4 MG/DL (8.5-10.1); CARBON DIOXIDE LEVEL 27 MMOL/L (20-31); CHLORIDE LEVEL 111 MMOL/L (98-107); CREATININE FOR GFR 0.71 MG/DL (0.55-1.30); FERRITIN 61.2 NG/ML (7.3-270.7); GLOMERULAR FILTRATION RATE > 60.0 (>58); GLUCOSE, FASTING 101 MG/DL (60-100); IRON (FE) 51 UG/DL (50-170); PERCENT SATURATION 16.6 % (13.2-45.0); POTASSIUM SERUM 3.9 MMOL/L (3.5-5.1); SODIUM LEVEL 142 MMOL/L (136-145); TOTAL IRON BINDING CAPACITY 308 UG/DL (250-425); TOTAL PROTEIN 6.2 G/DL (5.7-8.2); VITAMIN B12 LEVEL 590 PG/ML (211-911)
== END ==
LOC: M LAB 08:04
PROVIDERS: ATTEND Internal Medicine Hematology
DX: D50.0 Iron deficiency anemia secondary to blood loss (chronic) (principal)

== ENCOUNTER → 2023-10-13 | Outpatient (REF) | payer OTHER ==
[2023-10-13 16:41] LABS: INR 1.01
[2023-10-13 17:45] LABS: BLOOD UREA NITROGEN 11 MG/DL (9-23); CALCIUM LEVEL 9.2 MG/DL (8.5-10.1); CARBON DIOXIDE LEVEL 29 MMOL/L (20-31); CHLORIDE LEVEL 106 MMOL/L (98-107); CREATININE FOR GFR 0.77 MG/DL (0.55-1.30); GLOMERULAR FILTRATION RATE > 60.0 (>58); GLUCOSE, FASTING 87 MG/DL (60-100); POTASSIUM SERUM 4.4 MMOL/L (3.5-5.1); SODIUM LEVEL 141 MMOL/L (136-145)
== END ==
LOC: M LAB REF 16:13
PROVIDERS: ATTEND Family Medicine Addiction Medicine
DX: Z01.818 Encounter for other preprocedural examination (principal)

== ENCOUNTER → 2023-10-28 | Outpatient (REF) | payer OTHER | LOC: M SFHCWAGY 15:12 | PROVIDERS: ATTEND Advanced Practice Midwife | DX: N87.0 Mild cervical dysplasia (principal) ==

== ENCOUNTER → 2024-01-12 | Outpatient (REF) | payer OTHER | LOC: M LAB REF 10:04 | PROVIDERS: ATTEND Physician Assistant Medical | DX: R19.7 Diarrhea, unspecified (principal) ==

== ENCOUNTER → 2024-03-04 | Outpatient (REF) | payer OTHER ==
[~2024-03-04] MED LIST changes: +GABA-1490; -GABA600T4
[2024-03-04 18:36] LABS: BLOOD UREA NITROGEN 10 MG/DL (9-23); CALCIUM LEVEL 9.2 MG/DL (8.5-10.1); CARBON DIOXIDE LEVEL 29 MMOL/L (20-31); CHLORIDE LEVEL 108 MMOL/L (98-107); CREATININE FOR GFR 0.71 MG/DL (0.55-1.30); GLOMERULAR FILTRATION RATE > 60.0 (>58); GLUCOSE, FASTING 79 MG/DL (60-100); POTASSIUM SERUM 4.4 MMOL/L (3.5-5.1); SODIUM LEVEL 141 MMOL/L (136-145)
== END ==
LOC: M LAB REF 16:21
PROVIDERS: ATTEND Family Medicine Addiction Medicine
DX: G56.02 Carpal tunnel syndrome, left upper limb (principal)

== ENCOUNTER → 2024-04-13 | Outpatient (CLI) | payer OTHER ==
[~2024-04-13] MED LIST changes: +GABA-1172 PO; -GABA-282 PO
[2024-04-13 11:43] LABS: BASO # 0.1 10^3/uL (0.0-0.2); BASO % 0.4 % (0.0-1.0); EOS # 0.1 10^3/uL (0.0-0.5); EOS % 1.1 % (0.0-3.0); HEMATOCRIT 43.2 % (36.0-47.0); HEMOGLOBIN 14.9 g/dl (12.0-15.5); LYMPH % 25.9 % (24.0-44.0); MEAN CORPUSCULAR HEMOGLOBIN 32.5 pg (27.0-33.0); MEAN CORPUSCULAR HGB CONC 34.5 g/dl (32.0-36.5); MEAN CORPUSCULAR VOLUME 94.3 fl (80.0-96.0); MONO # 0.7 10^3/uL (0.0-0.8); MONO % 5.8 % (2.0-8.0); NEUTROPHILS # 7.6 10^3/uL (1.5-8.5); NEUTROPHILS % 66.5 % (36.0-66.0); PLATELET COUNT, AUTOMATED 140 10^3/uL (150-450); RED BLOOD COUNT 4.58 10^6/uL (4.00-5.40); WHITE BLOOD COUNT 11.5 10^3/uL (4.0-10.0)
[2024-04-13 12:08] LABS: ALBUMIN 3.5 G/DL (3.2-5.2); ALKALINE PHOSPHATASE 85 U/L (46-116); ALT/SGPT 29 U/L (7.0-40); AST/SGOT 11 U/L (<34); BILIRUBIN,TOTAL 0.4 MG/DL (0.3-1.2); BLOOD UREA NITROGEN 14 MG/DL (9-23); CARBON DIOXIDE LEVEL 28 MMOL/L (20-31); CHLORIDE LEVEL 109 MMOL/L (98-107); CREATININE FOR GFR 0.62 MG/DL (0.55-1.30); GLOMERULAR FILTRATION RATE > 60.0 (>58); GLUCOSE, FASTING 105 MG/DL (60-100); IRON (FE) 56 UG/DL (50-170); PERCENT SATURATION 16.8 % (13.2-45.0); POTASSIUM SERUM 3.9 MMOL/L (3.5-5.1); SODIUM LEVEL 141 MMOL/L (136-145); TOTAL IRON BINDING CAPACITY 333 UG/DL (250-425); TOTAL PROTEIN 6.7 G/DL (5.7-8.2)
[2024-04-13 12:10] LABS: FERRITIN 84.7 NG/ML (7.3-270.7)
[2024-04-13 12:11] LABS: VITAMIN B12 LEVEL 551 PG/ML (211-911)
== END ==
LOC: M LAB 08:55
PROVIDERS: ATTEND Registered Nurse
DX: E61.1 Iron deficiency (principal); E53.8 Deficiency of other specified B group vitamins

== ENCOUNTER 2024-05-12 17:50 | Emergency (ER) | payer OTHER ==
[~2024-05-12] VITALS: Ht 154.9 cm; Wt 79.5 kg
[2024-05-12] MEDS ORDERED: FLUTISP (18:03)
[2024-05-12 19:41] LABS: BASO % 0.4 % (0.0-1.0); EOS # 0.1 10^3/uL (0.0-0.5); HEMATOCRIT 43.1 % (36.0-47.0); HEMOGLOBIN 15.1 g/dl (12.0-15.5); LYMPH # 2.5 10^3/uL (1.5-5.0); LYMPH % 23.6 % (24.0-44.0); MEAN CORPUSCULAR HEMOGLOBIN 32.6 pg (27.0-33.0); MEAN CORPUSCULAR VOLUME 93.1 fl (80.0-96.0); MONO # 0.7 10^3/uL (0.0-0.8); MONO % 6.8 % (2.0-8.0); NEUTROPHILS # 7.3 10^3/uL (1.5-8.5); NEUTROPHILS % 67.8 % (36.0-66.0); PLATELET COUNT, AUTOMATED 139 10^3/uL (150-450); RED BLOOD COUNT 4.63 10^6/uL (4.00-5.40); WHITE BLOOD COUNT 10.7 10^3/uL (4.0-10.0)
[2024-05-12 20:13] LABS: CK-MB VALUE MASS < 1.0 NG/ML (<3.6)
[2024-05-12 20:15] LABS: BLOOD UREA NITROGEN 11 MG/DL (9-23); CALCIUM LEVEL 9.2 MG/DL (8.5-10.1); CARBON DIOXIDE LEVEL 26 MMOL/L (20-31); CHLORIDE LEVEL 109 MMOL/L (98-107); CREATININE FOR GFR 0.68 MG/DL (0.55-1.30); GLOMERULAR FILTRATION RATE > 60.0 (>58); GLUCOSE, FASTING 102 MG/DL (60-100); POTASSIUM SERUM 4.3 MMOL/L (3.5-5.1); SODIUM LEVEL 142 MMOL/L (136-145)
[2024-05-12] MEDS: KETOROLAC 30 MG/ML 1ML VIAL IV ONE (20:15)
[2024-05-12 20:16] LABS: CPK CREATINE PHOSPHOKINASE 83 U/L (34-145)
[2024-05-12] MEDS: ONDANSETRON 4MG 2ML VIAL IV ONE (20:25)
[2024-05-12] MEDS ORDERED: PROT1TAB2 PO (20:41)
[2024-05-12] MEDS ORDERED: KETO10TAB PO (20:41)
[2024-05-12] MEDS ORDERED: ONDA-282 PO (20:41)
[2024-05-12 20:45] LABS: LIPASE 34 U/L (12-53)
[2024-05-12] MEDS ORDERED: AMOX875T2 PO (20:46)
[2024-05-12] MEDS ORDERED: PRED20TA PO (20:46)
[2024-05-12 20:47] LABS: HCG, SERUM QUALITATIVE NEGATIVE (NEGATIVE)
[2024-05-12] MEDS: AUGMENTIN 875 MG TAB PO ONE (20:55)
[2024-05-12] MEDS: predniSONE 20 MG TAB PO ONE (20:56)
[2024-05-12 20:59] VITALS: BP 131/63; TEMP 98.3; O2SAT 96
== END 2024-05-12 21:18 | disposition home or self-care (01) ==
LOC: M ED 17:50
DX: J20.9 Acute bronchitis, unspecified (principal); R10.9 Unspecified abdominal pain; R19.7 Diarrhea, unspecified; R94.31 Abnormal electrocardiogram [ECG] [EKG]; F17.210 Nicotine dependence, cigarettes, uncomplicated; Z88.8 Allergy status to other drugs, medicaments and biological substances; Z79.51 Long term (current) use of inhaled steroids; Z79.2 Long term (current) use of antibiotics; Z79.52 Long term (current) use of systemic steroids; Z79.899 Other long term (current) drug therapy
CPT/HCPCS: 71046; 74018; 80048; 81001; 82550; 82553; 83690; 84484; 84703; 85025; 87486; 87581; 87633; 87798; 87880; 93005; 96374; 96375; 99284; J1885; J2405; J7512

== ENCOUNTER → 2024-06-01 | Outpatient (CLI) | payer OTHER ==
[~2024-06-01] MED LIST changes: +AMOX875T2 PO; +FLUTISP; +ONDA-282 PO; +PROT1TAB2 PO
== END ==
LOC: M RAD 16:16
PROVIDERS: ATTEND Family Medicine Addiction Medicine
DX: R05.3 Chronic cough (principal); Z98.1 Arthrodesis status

== ENCOUNTER → 2024-06-07 | Outpatient (CLI) | payer OTHER ==
[~2024-06-07] MED LIST changes: +ARIP10TA63; +ESCITALOPRAM; +IBUP80TA; +METH-1164 PO
== END ==
LOC: M RAD 12:05
PROVIDERS: ATTEND Family Medicine Addiction Medicine
DX: J18.9 Pneumonia, unspecified organism (principal); R91.8 Other nonspecific abnormal finding of lung field; K76.0 Fatty (change of) liver, not elsewhere classified

== ENCOUNTER 2024-06-10 16:39 | Emergency (ER) | payer OTHER ==
[~2024-06-10] VITALS: Ht 154.9 cm; Wt 80.8 kg
[~2024-06-10 16:39] MED LIST changes: -ARIP10TA63; -ESCITALOPRAM; -IBUP80TA; -METH-1164 PO
[2024-06-10] MEDS ORDERED: ARIP10TA63 (16:51)
[2024-06-10] MEDS ORDERED: IBUP80TA (16:51)
[2024-06-10] MEDS ORDERED: ESCITALOPRAM (16:51)
[2024-06-10 20:00] VITALS: BP 167/72; TEMP 97.2; O2SAT 98
[2024-06-10] MEDS ORDERED: METH-1164 PO (20:41)
[2024-06-10] MEDS: methocarbamoL 500 MG TAB PO ONE (20:48)
[2024-06-10] MEDS: KETOROLAC 60MG 2ML VIAL IM ONE (20:48)
== END 2024-06-10 20:50 | disposition home or self-care (01) ==
LOC: M ED 16:39
DX: M94.0 Chondrocostal junction syndrome [Tietze] (principal); Q07.00 Arnold-Chiari syndrome without spina bifida or hydrocephalus; F17.200 Nicotine dependence, unspecified, uncomplicated; Z79.899 Other long term (current) drug therapy; Z88.5 Allergy status to narcotic agent; Z88.8 Allergy status to other drugs, medicaments and biological substances
CPT/HCPCS: 96372; 99283; J1885

== ENCOUNTER → 2024-09-27 | Outpatient (CLI) | payer OTHER ==
[~2024-09-27] MED LIST changes: +ARIP10TA63; +ESCITALOPRAM; +IBUP80TA; +METH-1164 PO
== END ==
LOC: M WUC 09:51
PROVIDERS: ATTEND Physician Assistant
DX: M79.672 Pain in left foot (principal); M19.072 Primary osteoarthritis, left ankle and foot

== ENCOUNTER → 2024-10-05 | Outpatient (CLI) | payer OTHER ==
[2024-10-05 09:30] LABS: BASO % 0.5 % (0.0-1.0); EOS # 0.2 10^3/uL (0.0-0.5); EOS % 2.3 % (0.0-3.0); HEMATOCRIT 43.1 % (36.0-47.0); HEMOGLOBIN 14.8 g/dl (12.0-15.5); LYMPH # 2.7 10^3/uL (1.5-5.0); LYMPH % 35.2 % (24.0-44.0); MEAN CORPUSCULAR HEMOGLOBIN 31.8 pg (27.0-33.0); MEAN CORPUSCULAR HGB CONC 34.3 g/dl (32.0-36.5); MEAN CORPUSCULAR VOLUME 92.7 fl (80.0-96.0); MONO # 0.5 10^3/uL (0.0-0.8); MONO % 6.5 % (2.0-8.0); NEUTROPHILS # 4.2 10^3/uL (1.5-8.5); NEUTROPHILS % 55.2 % (36.0-66.0); RED BLOOD COUNT 4.65 10^6/uL (4.00-5.40); WHITE BLOOD COUNT 7.5 10^3/uL (4.0-10.0)
[2024-10-05 09:32] LABS: PLATELET COUNT, AUTOMATED 154 10^3/uL (150-450)
[2024-10-05 09:56] LABS: TOTAL IRON BINDING CAPACITY 305 UG/DL (250-425)
[2024-10-05 09:57] LABS: ALBUMIN 3.3 G/DL (3.2-5.2); ALKALINE PHOSPHATASE 85 U/L (35-104); ALT/SGPT 53 U/L (7.0-40); AST/SGOT 25 U/L (<34); BILIRUBIN,TOTAL 0.6 MG/DL (0.3-1.2); BLOOD UREA NITROGEN 11 MG/DL (9-23); CARBON DIOXIDE LEVEL 28 MMOL/L (20-31); CHLORIDE LEVEL 109 MMOL/L (98-107); CREATININE FOR GFR 0.69 MG/DL (0.55-1.30); GLOMERULAR FILTRATION RATE > 90.0 (>58); GLUCOSE, FASTING 116 MG/DL (60-100); IRON (FE) 66 UG/DL (50-170); PERCENT SATURATION 21.6 % (13.2-45.0); POTASSIUM SERUM 3.9 MMOL/L (3.5-5.1); SODIUM LEVEL 143 MMOL/L (136-145); TOTAL PROTEIN 6.3 G/DL (5.7-8.2)
[2024-10-05 09:58] LABS: FERRITIN 72.6 NG/ML (7.3-270.7); VITAMIN B12 LEVEL 484 PG/ML (211-911)
== END ==
LOC: M LAB 08:39
PROVIDERS: ATTEND Registered Nurse
DX: D50.0 Iron deficiency anemia secondary to blood loss (chronic) (principal)

== ENCOUNTER → 2024-10-14 | Outpatient (REF) | payer OTHER ==
[2024-10-14 14:00] LABS: THYROID STIMULATING HORMONE 1.425 uIU/ML (0.55-4.78)
[2024-10-14 14:04] LABS: CHOLESTEROL RISK RATIO 4.67 (<5); HDL CHOLESTEROL 37.4 MG/DL (>40); NON-HDL-C 137.6 MG/DL
[2024-10-14 14:16] LABS: HEMOGLOBIN A1c 4.9 % (4.0-6.0)
== END ==
LOC: M LAB REF 13:22
PROVIDERS: ATTEND Family Medicine Addiction Medicine
DX: Z68.31 Body mass index [BMI] 31.0-31.9, adult (principal)

== ENCOUNTER → 2025-03-23 | Outpatient (REF) | payer OTHER | LOC: M LAB REF 14:28 | PROVIDERS: ATTEND Physician Assistant Medical | DX: R19.7 Diarrhea, unspecified (principal) ==

== ENCOUNTER → 2025-04-25 | Outpatient (CLI) | payer OTHER ==
[2025-04-25 09:35] LABS: BASO # 0.1 10^3/uL (0.0-0.2); BASO % 0.7 % (0.0-1.0); EOS # 0.2 10^3/uL (0.0-0.5); EOS % 1.9 % (0.0-3.0); LYMPH # 2.8 10^3/uL (1.5-5.0); LYMPH % 27.0 % (24.0-44.0); MONO # 0.7 10^3/uL (0.0-0.8); MONO % 6.9 % (2.0-8.0); NEUTROPHILS # 6.7 10^3/uL (1.5-8.5); NEUTROPHILS % 63.2 % (36.0-66.0); PLATELET COUNT, AUTOMATED 149 10^3/uL (150-450)
[2025-04-25 10:02] LABS: IRON (FE) 76 UG/DL (50-170)
[2025-04-25 10:03] LABS: ALT/SGPT 40 U/L (7.0-40); AST/SGOT 28 U/L (<34); CALCIUM LEVEL 9.5 MG/DL (8.5-10.1); CARBON DIOXIDE LEVEL 26 MMOL/L (20-31); CHLORIDE LEVEL 110 MMOL/L (98-107); CREATININE FOR GFR 0.71 MG/DL (0.55-1.30); GLOMERULAR FILTRATION RATE > 90.0 (>58); PERCENT SATURATION 22.8 % (13.2-45.0); POTASSIUM SERUM 3.9 MMOL/L (3.5-5.1); SODIUM LEVEL 143 MMOL/L (136-145)
[2025-04-25 10:08] LABS: VITAMIN B12 LEVEL 489 PG/ML (211-911)
== END ==
LOC: M LAB 08:43
PROVIDERS: ATTEND Registered Nurse
DX: D50.0 Iron deficiency anemia secondary to blood loss (chronic) (principal)